=== PATIENT | male | born 1955 | race Caucasian/White ===

== ENCOUNTER 2021-12-08 15:39 | Inpatient (IN) | payer MEDICARE ==
[~2021-12-08] VITALS: Ht 175.3 cm; Wt 90.3 kg
[2021-12-08] MEDS ORDERED: PROTONIX 40 MG40 M1 PO (17:12)
[2021-12-08] MEDS ORDERED: RENVELA800 MG PO (17:12)
[2021-12-08] MEDS ORDERED: ADVAIR 250-501 EACH INH (17:13)
[2021-12-08] MEDS ORDERED: PROAIR HFA8.5 GM INH (17:13)
[2021-12-08] MEDS ORDERED: ASPIRIN EC81 MG PO (17:14)
[2021-12-08] MEDS ORDERED: ISOSORBIDE MONO30 MG PO (17:14)
[2021-12-08] MEDS ORDERED: B-121000 MCG PO (17:14)
[2021-12-08] MEDS ORDERED: PRAVASTATIN SOD40 MG PO (17:15)
[2021-12-08] MEDS ORDERED: ALLOPURINOL100 MG PO (17:20)
[2021-12-08] MEDS ORDERED: LEVOTHYROXINE200 MC1 PO (17:20)
[2021-12-08] MEDS ORDERED: LIDOCAINE PAIN1 EACH TOP (17:23)
[2021-12-08] MEDS ORDERED: FLOMAX 0.4 MG0.4 MG PO (17:23)
[2021-12-08] MEDS ORDERED: BACLOFEN10 MG PO (17:24)
[2021-12-08] MEDS ORDERED: ARTIFICIAL TEA1 EACH OU (17:26)
[2021-12-08] MEDS ORDERED: TRAMADOL HCL50 MG PO (17:27)
[2021-12-08] MEDS ORDERED: GABAPENTIN100 MG PO (17:27)
--- NOTE | 2021-12-09 08:56 | NUR ---
PT REFUSING ALL CARE EXCEPT FOR HIS MEDICINE TODAY. HE IS ALERT AND ORIENTED. STATES, " I WANT TO LEAVE." NOTIFIED DR ESTRADA OF PTS COMPLAINTS.
== END 2021-12-09 10:30 | disposition left against medical advice (07) | DRG 70 ==
LOC: PROG CARE 16:00
PROVIDERS: ADMIT Internal Medicine
PROC: 5A1D70Z Performance of Urinary Filtration, Intermittent, Less than 6 Hours Per Day (ICD-10-PCS; principal; 2021-12-08)
DX: G93.41 Metabolic encephalopathy (principal); N18.6 End stage renal disease; I12.0 Hypertensive chronic kidney disease with stage 5 chronic kidney disease or end stage renal disease; E87.2 Acidosis; E87.1 Hypo-osmolality and hyponatremia; Z20.822 Contact with and (suspected) exposure to COVID-19; E87.5 Hyperkalemia; M62.838 Other muscle spasm; N40.0 Benign prostatic hyperplasia without lower urinary tract symptoms; G89.4 Chronic pain syndrome; G62.9 Polyneuropathy, unspecified; E78.5 Hyperlipidemia, unspecified; I25.10 Atherosclerotic heart disease of native coronary artery without angina pectoris; K21.9 Gastro-esophageal reflux disease without esophagitis; E03.9 Hypothyroidism, unspecified; Z91.15 Patient's noncompliance with renal dialysis; Z79.01 Long term (current) use of anticoagulants; Z79.82 Long term (current) use of aspirin; Z95.1 Presence of aortocoronary bypass graft; Z88.8 Allergy status to other drugs, medicaments and biological substances
CPT/HCPCS: 71045; 82962; 83605; 87040; 90937; 94760; J0696; J1644; J2150; U0002